=== PATIENT | male | born 1995 | race Two or more races ===

== ENCOUNTER 2017-05-11 12:31 | Emergency (ER) | payer MEDICAID ==
[~2017-05-11] VITALS: Ht 170.2 cm; Wt 118.0 kg
[2017-05-11 19:47] VITALS: BP 136/73
== END 2017-05-11 20:30 | disposition home or self-care (01) ==
LOC: ER 12:31
DX: T16.1XXA Foreign body in right ear, initial encounter (principal); F17.210 Nicotine dependence, cigarettes, uncomplicated; X58.XXXA Exposure to other specified factors, initial encounter; Y93.89 Activity, other specified; Y92.018 Other place in single-family (private) house as the place of occurrence of the external cause
CPT/HCPCS: 99284